=== PATIENT | female | born 1950 | race Two or more races ===

== ENCOUNTER 2023-06-30 04:51 | Day surgery (SDC) | payer OTHER ==
[~2023-06-30 04:51] MED LIST: ENBREL50 MG/1 ML SUBCUTANEO; FOSAMAX70 MG PO; METFORMIN HCL500 M1 PO; SYNTHROID50 MCG PO
[2023-06-30] MEDS ORDERED: TRAMADOL HCL50 MG PO (09:40)
[2023-06-30] MEDS ORDERED: TYLENOL ARTHRI650 MG PO (09:40)
[2023-06-30] MEDS ORDERED: MIRALAX17 GM PO (09:40)
== END 2023-06-30 11:45 | disposition home or self-care (01) ==
LOC: CIR.AMB 04:51
PROVIDERS: ATTEND Surgery
DX: K40.90 Unilateral inguinal hernia, without obstruction or gangrene, not specified as recurrent (principal); Z20.822 Contact with and (suspected) exposure to COVID-19; I10 Essential (primary) hypertension
CPT/HCPCS: 49650; C1781